=== PATIENT | male | born 1935 | race Caucasian/White ===

== ENCOUNTER 2016-10-17 12:28 | Observation (INO) | payer MEDICARE ==
[~2016-10-17] VITALS: Ht 185.4 cm; Wt 103.0 kg
[2016-10-17] VITALS (10 sets, daily range): BP systolic 124–163; BP diastolic 48–77; PULSE 45–82; RESP 16–22; O2SAT 92–97
--- NOTE | 2016-10-17 12:45 | ED.REPORT ---
HPI-Syncope Date of Service Oct 17, 2016 ED Provider: Miguel Good MD The pt is a 81 y/o male w/ a hx of HTN and syncopal episodes, presenting to the ED via EMS due to a syncopal episode. The pt stood up, began to feel dizzy, and have blurred vision, sat back down, and lost consciousness. He didnt feel SOB or chest pain before the incident. The pt has had this happen 3x in the last month. 30 seconds of bystander CPR was performed and an AED was applied but no shock was advised which caused the pt mild L sided chest pain. Denies peripheral edema or weakness. Nursing Notes Stated Complaint: SYNCOPAL EPISODE Chief Complaint: Syncopal episode Nursing Notes Reviewed: Yes ([employer], [employer] not reconciled) Allergies: Coded Allergies: No Known Allergies (Unverified , 10/17/16) General Time Seen by Provider: 13:30 Chief Complaint Lost consciousness Hx Obtained From: Patient, EMS Arrived By: Ambulance Onset Occurred: Just prior to arrival Symptom Duration: Since onset Recent Healthcare: No recent hospitalization, Recent doctor visit Similar Sx Previous: Yes Past Medical History Past Medical History HTN Syncopal episodes Bladder cancer Past Surgical History None reported Social History Other Social History: Good social support Ambulatory Status Independent Review of Systems Mild L sided chest pain due to CPR Eyes: Reports: Blurred bilateral Respiratory: Denies: Shortness of breath Cardiovascular: Denies: Edema Neurologic: Reports: Dizziness, Denies: Weakness Complete sys rev & neg: except as marked. Physical Exam Initial Vital Signs Vital Signs (First) Date Time Temp Pulse Resp B/P Pulse Ox O2 Delivery O2 Flow Rate FiO2 10/17/16 12:34 36.6 45 16 136/48 95 Room Air Initial VS: Reviewed, Vital signs abnormal (bradycardic) Head / Eyes: Atraumatic, Normocephalic, PERRL ENT: Mucous membranes moist, Conjunctiva normal, No scleral icterus Neck: Supple, Non-tender, Full range of motion Abdomen / GI: Soft, Non-tender Upper Extremities: Vascular intact, Neuro intact, No swelling, No tenderness Skin: Warm, Dry, No cyanosis Psychiatric: Mood/affect normal, Behavior normal, Normal thought content General/Constitutional: Awake, Alert, No acute distress Respiratory / Chest: Atraumatic, Breath sounds NL, Breath sounds = bilat Cardiovascular: Heart rate NL, Regular rhythm, Heart sounds NL Lower Extremity / Pelvis / MS: Atraumatic, Inspection NL, Full range of motion Neurologic: Oriented X3, Speech NL Interpretation & Diagnostics Lab Results Interpretation Result Diagram: 10/17/16 1248 10/17/16 1248 Test 10/17/16 12:32 10/17/16 12:48 Hold De Luna Top Tube Received (Received) White Blood Count 6.7th/mm3 (3.8-10.1) Red Blood Count 4.76mil/mm3 (4.40-5.80) Hemoglobin 14.5g/dL (13.8-17.2) Hematocrit 42.9% (41.0-50.0) Mean Corpuscular Volume 90.1fL (81-100) Mean Corpuscular Hemoglobin 30.5pg (27.0-35.0) Mean Corpuscular Hemoglobin Concent 33.8% (32.0-37.0) Red Cell Distribution Width 13.3% (12.3-15.4) Platelet Count 158bil/L (150-400) Neutrophils (%) (Auto) 79.0% (40-74) Lymphocytes (%) (Auto) 10.7% (14-46) Monocytes (%) (Auto) 8.2% (4-12) Eosinophils (%) (Auto) 1.5% (0-5) Basophils (%) (Auto) 0.3% (0-3) Sodium Level 139mEq/L (134-144) Potassium Level 5.4mEq/L (3.5-5.2) Chloride Level 100mEq/L (97-108) Carbon Dioxide Level 26mmol/L (18-29) Blood Urea Nitrogen 19mg/dL (8-27) Creatinine 0.94mg/dL (0.76-1.27) Estimat Glomerular Filtration Rate 82mL/min (>59) Glucose Level 130mg/dL (60-99) Calcium Level 10.8mg/dL (8.5-10.1) Magnesium Level 2.1mg/dL (1.6-2.6) Total Bilirubin 0.8mg/dL (0.0-1.2) Aspartate Amino Transf (AST/SGOT) 28U/L (0-50) Alanine Aminotransferase (ALT/SGPT) 23U/L (0-44) Alkaline Phosphatase 50U/L (25-160) Troponin T < 0.010ug/L (0.0-0.011) Total Protein 6.8g/dL (6.4-8.4) Albumin 4.3g/dL (3.4-5.0) Lab Results Interpretation: CBC normal CMP marginal hyperkalemia Troponin #1 negative ECG Interpretation ECG Interpretation: Rate 42 Sinus bradycardia Prolonged LA interval Time: 12:36 Interpreted by: ED physician X-Ray Chest Interpretation Chest Xray Interpretation: IMPRESSION: No radiographic evidence of acute cardiopulmonary pathology. Dictated by: Jose Maria Giron M.D. on 10/17/2016 at 13:48 Approved by: Jose Maria Giron M.D. on 10/17/2016 at 13:49 View: Portable, 1 view Interpretation / Wet Read by: Interpret - Radiologist Re-Eval/Medical Decision Med Decision/Clinical Course This is a pleasant 81-year-old male who had witnessed syncope at [employer] today. The patient reports she has had a couple brief lightheadedness episodes in recent weeks, was feeling fine when he went to [employer]. 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 Apparently he was unconscious for about 5 minutes, to the point of bystanders initiated CPR. The patient then woke up. First responders applied an AED with No shockable rhythm but patient was waking up as ALS arrived-the patient was found to be profoundly bradycardic and received 0.5 mg of atropine for heart rate in 40s. He recovered uneventfully complaints of little bit of chest soreness that he reports is quite miserable possibly from the CPR. The patient denies any new medicines, he is on lisinopril for blood pressure-but is not on any rate control agents. He denies previous history of coronary disease or syncope. He has no additional complaints. His heart rates come up into the 50s here, he is normotensive. And he clinically appears well. EKG is notable for sinus bradycardia with a marked first-degree heart block, no prior EKGs available for comparison. He thought he had an old EKG 2 years ago at [facility], but a call there was unable to identify one in recent years. Blood work is normal. Chest x-ray reveals no overt trauma. Rales the patient presents with syncope and high risk bradycardia who is not on any rate control agents, the plan is observation for telemetry monitoring and cardiology consultation. Case is discussed with Dr. Ontiveros and Dr. Manjarrez. Source of Hx: Old records, EMS Consultation #1: Referral / Consult Name: Gabriela Ontiveros MD Consulted With: Cardiology Call Returned at: 14:16 Parts Back Counter Man: Will see patient Note: Discussed pt's case. Consultation #2: Referral / Consult Name: Aditi Manjarrez MD Consulted With: Hospitalist Call Returned at: 16:03 Parts Back Counter Man: Will see patient, Agrees with eval, Agrees with plan, Accepts admit Differential Diagnosis: Positive: Dysrhythmia (bradycardia), Negative: Abdominal aortic aneurysm, Electrolyte disorder, Head trauma, Intracranial bleed, Palpitations, Pneumothorax, Prolonged QT syndrome, Pulmonary embolus, Subarachnoid hemorrhage Counseled Regarding: Diagnosis, Lab results, Need for admission Discharge & Departure Impression: Primary Impression: Syncope Syncope type: unspecified Qualified Code: R55 - Syncope and collapse Additional Impressions: Bradycardia First degree heart block Disposition: ADMITTED TO HOSPITAL Discharge Condition All VS Reviewed: Yes Condition: Stable Referrals: Cedric Wallsibzehra Attestation Portions of this note were transcribed by Joe Price. I, Dr. Good personally performed the history, physical exam and medical decision-making; I reviewed and confirmed the accuracy of the information in the transcribed note. copies to: Cedric Walls Matthew F MD Oct 17, 2016 12:44 Joe Price Oct 17, 2016 13:38
[2016-10-17 13:10] LABS: BASOPHILS % (AUTO) 0.3 % (0-3); EOSINOPHILS % (AUTO) 1.5 % (0-5); MONOCYTES % (AUTO) 8.2 % (4-12); Mean Corpuscular Hemoglobin 30.5 pg (27.0-35.0); Mean Corpuscular Volume 90.1 fL (81-100); Platelet Count 158 bil/L (150-400)
--- NOTE | 2016-10-17 13:50 | DRSVH ---
PROCEDURE: X-RAY CHEST ONE VIEW, PORTABLE ([id number]) INDICATIONS: sncope TECHNIQUE: One view of the chest was acquired. COMPARISON: None. FINDINGS: Surgical changes and devices: None. Lungs and pleura: No pleural effusions or pneumothorax. Lungs are clear. Mediastinum: Mediastinal contours appear normal. Heart size is normal. Bones and chest wall: No suspicious bony lesions. Overlying soft tissues appear unremarkable. Tiny metallic fragments project over the left shoulder. IMPRESSION: No radiographic evidence of acute cardiopulmonary pathology. Dictated by: Jose Maria Giron M.D. on 10/17/2016 at 13:48 Approved by: Jose Maria Giron M.D. on 10/17/2016 at 13:49
[2016-10-17 13:58] LABS: TROPONIN T < 0.010 ug/L (0.0-0.011)
[2016-10-17 14:06] LABS: Magnesium 2.1 mg/dL (1.6-2.6)
[2016-10-17] MEDS ORDERED: Alum-Mag Hydrox-Simeth 30 mL Suspension PO PRN (16:20)
[2016-10-17] MEDS ORDERED: Ondansetron 2 mg/mL 2 mL Inj IVPUSH PRN (16:20)
[2016-10-17 17:24] LABS: APPEARANCE,URINE HAZY (CLEAR,HAZY); COLOR,URINE YELLOW (YELLOW); OCCULT BLOOD,URINE NEGATIVE (NEGATIVE)
[2016-10-17] MEDS ORDERED: L.AC1CAP6 PO (17:42)
[2016-10-17] MEDS ORDERED: MULT1CAP33 PO (17:42)
[2016-10-17] MEDS ORDERED: LISI10TA PO (17:42)
[2016-10-17] MEDS ORDERED: OMEG500C PO (17:42)
[2016-10-17] MEDS ORDERED: CHOL200047 PO (17:42)
[2016-10-17] MEDS ORDERED: KTC2C15 TP (17:42)
[2016-10-17] MEDS ORDERED: TAMS0.4C98 PO (17:42)
--- NOTE | 2016-10-17 18:48 | NUR ---
Admit Pt admitted to [facility] room 3005 via ED, report received from Talia SALCEDO. Pt arrived via stretcher, able to transfer self, A/O x 4, denies CP or discomfort, denies dizziness. Admit and Med req completed, assessed and plan on white board.
--- NOTE | 2016-10-17 19:32 | CONS ---
[address] [address] CONSULTATION REPORT PATIENT: SATHYA SCHAFFER : 1935 MR#: [id number] ADMIT: 10/17/2016 JOB ID: [id number] DATE OF SERVICE: 10/17/2016 CHIEF COMPLAINT: The patient came in after a syncopal episode. HISTORY OF PRESENT ILLNESS: The patient is an 81-year-old man who has been treated for hypertension for maybe the past couple of years. Over the past several weeks, he has been feeling a little off base, a little off balance but has not had any presyncope or syncope. Today, he was in [employer]. Most of the time he had been sitting, but he ruchi to stand up, felt like he was going to pass out and sat down. He ultimately lost consciousness. He did not have any chest pain, shortness of breath. He might have felt a little bit of sweatiness before the event and certainly afterward. Because a pulse could not be palpated, bystander CPR was performed and an AD was applied. No shock was advised. Heart rates were in the 40s and his EKG at the time admission shows a heart rate of 42. He denies any problems with chest pain, chest pressure. He has not had any problems with shortness of breath, although he feels like he is slowing down. He denies any orthopnea, PND, lower extremity edema. Does not notice palpitations. PAST MEDICAL HISTORY/PROBLEM LIST: Hypertension. OUTPATIENT MEDICATIONS INCLUDE: 1. Lisinopril 10 mg daily. 2. Tamsulosin. 3. Ketoconazole cream. ALLERGIES: No known drug allergies. SOCIAL HISTORY: No significant alcohol. No tobacco. FAMILY HISTORY: No early coronary disease. REVIEW OF SYSTEMS: Overall health: No fevers, night sweats, or weight loss. GI: No problems with ulcers or blood in the stool. no dysuria, hematuria. Pulmonary: No increased shortness of breath. Cardiac: As per HPI. Denies orthopnea, PND, lower extremity edema. Derm: No rashes or skin breakdown. Neuro: Feeling an unsteady gait. Somewhat off. No chronic headaches. Heme: No easy bruising or bleeding. Psych: No acute issues. Ophtho: No vision changes. ENT: No hearing changes, no difficulty swallowing. All other review of systems on a 12 point review of system are negative. PHYSICAL EXAMINATION: Blood pressure 163/77, heart rate 82, sats are 95% on room air. General: In no acute distress. Speaking in full sentences without apparent shortness of breath. Head and neck exam: Normocephalic, atraumatic. Neck: No obvious JV distention. Heart exam: Bradycardic but regular without obvious murmurs, gallops, rubs appreciated. Lungs sound clear. Back: No CVA tenderness to palpation. Abdomen: Soft, nondistended, nontender. Extremities: Warm, no appreciable edema, 2+ distal pulses. Skin without breakdown appreciated. Neuro: Alert and oriented. Gait not tested. Psych: Appropriate mood and affect. Ophtho: Vision grossly intact. ENT: Hearing intact. Mucous membranes moist. EKG shows sinus bradycardia, rate of 42, first-degree AV block but normal QRS durations. LABORATORIES: Show white count 6.7, H and H 14.5, 42.9, platelets 158,000. Chemistry shows sodium 139, potassium 4.1, chloride and bicarb 100 and 26. BUN and creatinine 19 and 0.94. Troponins negative. IMAGING: Has chest x-ray that shows no acute cardiopulmonary issues. IMPRESSION: The patient had a syncopal event during which he passed out and apparently a pulse was not appreciated, so CPR was performed. He states he has been a little bit off over the last several weeks, feeling unsteady on his feet. Similar, more minor episodes may been occurring. He has never passed out. Heart rate is low. There is no evidence of heart block, just a first-degree AV block. PLAN: 1. Continue him on telemetry. He is going to get his orthostatics checked today. 2. Echocardiogram and will continue to follow with you.
--- NOTE | 2016-10-17 19:53 | PCM.HPMED ---
Subjective Date of Service Oct 17, 2016 Primary Provider: Admitting Physician: Stephen Manjarrez MD Primary Care Physician: Asiya Montero MD Attending Physician: Stephen Manjarrez MD Chief Complaint: Patient is an 81-year-old male with a medical history significant for hypertension and frequent urination presents to the ED with syncope. History of Present Illness: Per patient, he states while at [employer] around 11 AM this morning, patient stood up after 2-3 minutes, patient sent down and lost consciousness for about 5 minutes. Patient denies any loss of bowel control, unsure whether he urinary incontinency however. Patient awoke diaphoretic and nauseous, and vomited. Additionally patient reports lightheadedness and dizziness, no chest pain, palpitation, or shortness of breath however. He denies any muscle aches. He never had this before. Patient states that while he was unconscious, one of the bystander who was a physician, did not detect a pulse and initiated CPR. A portable defibrillator with patches were placed on, however not recommend shock. Prior to this event, patient had several episodes of lightheadedness and dizziness transitioning from sitting to standing position for the past 2-3 weeks. He attributed to inadequate oral intake and did not suspect medical attention. Patient denies any new medication. In the ED, patient was sinus bradycardic with a first-degree heart block heart rate 45, temperature 36.6 normal, but pressure 130/48, respiratory rate 17 pulse oximetry 95% on room air. Sex are unremarkable as was CBC. CMP remarkable for potassium of 5.4 and glucose of 130, otherwise troponin were unremarkable. TSH is 1.01. Pt admitted for observation and workup of syncope. Review of Systems: A comprehensive review of systems was conducted with the patient and found to be negative except as above in the History of Present Illness. Allergies Coded Allergies: No Known Allergies (Unverified , 10/17/16) Home Medications Lisinopril 10 mg daily Multivitamins Probiotics Tamsulosin 0.4 mg twice a day PMH Hypertension History of bladder cancer in the 90s Diverticular disease Surgical History Bladder surgery Partial colectomy secondary to diverticular disease 2007 Family History Father CVA Mother cancer 99 years old Sister with Alzheimer disease Sister #2 disease with pancreatic cancer Social History Hx Alcohol Use: No Hx Substance Use: No Smoking Status: Former Smoker Exam Vital Signs Vital Sign - Last Date Time Temp Pulse Resp B/P Pulse Ox O2 Delivery O2 Flow Rate FiO2 10/17/16 18:46 82 163/77 95 Room Air 10/17/16 17:20 36.9 22 Exam General: No acute distress, appropriately interactive HEENT: Normocephalic, atraumatic. PERRLA, EOMI, Anicteric sclerae, moist conjunctivae. Neck: No JVD, No bruits. No lymphadenopathy or thyromegaly. Cardiovascular: Bradycardic regular in rate, 2+ systolic heart murmur Pulmonary: b/l air sound with no crackles, wheezes, or rhonchi. no use of accessory muscles. Abdomen: +Bowel sound, Soft, nontender, nondistended. Extremities: No clubbing or cyanosis, no lymphedema, no b/l lower leg edema Skin: Normal temperature, turgor, and texture; no rash. No visualized skin ulcer. Neurological: CN II-VII grossly intact, moving equally on all 4 extremities Psychiatric: Normal mood and affect. AOx3 Lab and Diagnostics Result Diagram: 10/17/16 1248 10/17/16 1248 X-Rays, CTs and MRIs PROCEDURE: X-RAY CHEST ONE VIEW, PORTABLE INDICATIONS: syncope IMPRESSION: No radiographic evidence of acute cardiopulmonary pathology. Dictated by: Jose Maria Giron M.D. on 10/17/2016 at 13:48 Assessment & Plan Patient is an 81-year-old male with a medical history significant for hypertension and bladder cancer came in with 1 syncopal episode, admitted for further evaluation. Syncope -EKG sinus bradycardia, with first-degree heart block, positive orthostatics -Most likely cardiac arrhythmia, possible in combination with tamsulosin and dehydration, small suspicious for autonomic dysfunction -good PO fluids, cont to encourage intake -echocardiogram in the AM -Negative troponin 2, trending Symptomatic Bradycardia -first degree heart block -Consult environmental field team member Dr. Billingsley -Telemetry monitoring Hyperkalemia -Kayexalate one-time dose given -BMP in a.m. Frequent urination -holding tamsulosin as above Hypertension -Restart home medication, lisinopril 10 mg daily -Enalaprilat 1.25mg over 5min q6h if SBP consistently >180mmHg Hyperglycemia -A1c pending -daily glucose monitoring CODE STATUS full code DVT prophylaxis heparin subcutaneous Patient Status: Patient is admitted under observation status with expected length of stay LESS than 2 midnights due to severity of presenting symptoms, risk of adverse event, and complexity of treatment plan. GI Prophylaxis: Not indicated VTE Prophylaxis: Sub-Q Heparin (Unfractionated) Resuscitation Status: CPR: Attempt Resuscitation Jenaro An DO Oct 17, 2016 19:53
[2016-10-17] MEDS: Heparin 5,000 Unit/mL Inj SUBQ SCH (21:30)
[2016-10-18 00:23] VITALS: BP 127/56; PULSE 50; RESP 18; O2SAT 93
[2016-10-18 05:08] VITALS: BP_SYST 137; BP_SYST 142; BP_SYST 174; BP_DIAS 70; PULSE 49; RESP 18; O2SAT 94
--- NOTE | 2016-10-18 06:07 | NUR ---
NOC Activity Pt is alert and oriented. Denies chest pain, sob, n/v or abd discomfort. Telemetry noted no abnormal rhythm. Intentional hourly rounding done and pt has slept most of the night.
[2016-10-18] MEDS: Heparin 5,000 Unit/mL Inj SUBQ SCH (08:29)
[2016-10-18 10:10] VITALS: PULSE 55
--- NOTE | 2016-10-18 10:27 | NUR ---
Social Work-initial assessment/readiness for discharge/ multidisciplinary rounds: Data:See initial assessment. Pt is a 81 y/o male who was admitted on 10/17/16 for syncope per H&P. Pt's insurance is [employer] and PCP is Asiya Montero MD. EMR reviewed. SW met with pt at bedside, SW role explained. Pt is alert and oriented x3. Pt resides at home alone in [place] where he remains independent with ADls. Pt drive and does not use any DME. Pt has no HH or SNF history. Pt has no assistant terminal manager care insurance or VA benefits. SW discussed DPOA/advanced directive, Pt confirms this has been completed, SW encouraged a copy to be brought in. No concerns noted for pt's capacity for self care per RN or MD. Pt has been up independent in his room. SW provided pt with discharge planning checklist and encouraged pt to call with any questions, phone number provided. pt confirms his SO Angelina Stephenson will provide transport home. No discharge needs identified. SW will continue to follow if needs arise. Assessment:Pt who is independent at baseline. Plan:Pt to discharge home when medically stable via POV. No discharge needs identified. SW will continue to follow if needs arise. ELSA Proctor Addendum: 10/18/16 at 1036 by CARLOS PERAZA Amended: Links added.
[2016-10-18 10:54] VITALS: BP 150/64; PULSE 48; RESP 18; O2SAT 96
--- NOTE | 2016-10-18 11:24 | DRSVH ---
[facility] [address] [place] [address] Echocardiogram Report Name: SATHYA SCHAFFER Study Date: 10/18/2016 Height: 73 in Hospital Exam Location: [facility] Weight: 22 7 lb Gender: Male BSA: 2.3 m2 : 1935 Age: 81 yrs BP: 174/70 mmHg Reason For Study: 1ST DEGREE AV BLOCK, SYNCOPE Ordering Physician: SHAYY BOB Performed By: Keren Chapman [facility] Interpretation Summary 1) Mild concentric left ventricular hypertrophy with normal size, wall motion, and systolic functoin (EF 55-60%). 2) Mildly enlarged right ventricle with normal function. 3) No significant valvular abnormalities. 4) Normal pulmonary artery pressures. 5) No prior Echo available for comparison. Procedure: A two-dimensional transthoracic echocardiogram with color flow and Doppler was performed. The study quality was technically adequate. There is no prior echocardiogram noted for this patient. The patient was in sinus bradycardia with heart rates between 46 and 51 bpm during the exam. Left Ventricle: The left ventricle is normal in size. There is mild concentric left ventricular hypertrophy. The left ventricular ejection fraction is normal. The ejection fraction is estimated to be 55-60%. There are no focal wall motion abnormalities. Assessment of diastolic parameters indicates a relaxation abnormality of the left ventricle, consistent with normal filling pressures. Right Ventricle: The right ventricle is mildly dilated. The right ventricular systolic function is normal. Atria: The left atrium is moderately dilated. The right atrium is normal in size. There is no Doppler evidence for an interatrial shunt. Mitral Valve: The mitral valve leaflets appear normal. There is no evidence of stenosis, fluttering, or prolapse. There is trace mitral regurgitation. Aortic Valve: The aortic valve is trileaflet. The aortic valve is slightly calcified. The aortic valve opens well. There is no aortic valve stenosis. No aortic regurgitation is present. Tricuspid Valve: The tricuspid valve is normal. There is mild tricuspid regurgitation. The right ventricular systolic pressure is estimated at least 35 mmHg assuming a right atrial pressure of 3 mm Hg. Pulmonic Valve: The pulmonic valve leaflets are thin and pliable; valve motion is normal. There is trace pulmonic regurgitation. Great Vessels: The aortic root is normal size. The ascending aorta is normal in size. The aortic arch is normal in size. The pulmonary artery is not well visualized, but is probably normal size. The IVC is of normal diameter and collapses greater than 50% with a sniff. This suggests a low right atrial pressure of 3 mm Hg. Pericardium/ Pleura There is no pericardial effusion. There is no pleural effusion. MMode/2D Measurements & Calculations LVIDd: 5.0 cm RA long axis LVOT diam: 2.2 cm LVIDs: 2.9 cm LA A2 area: 28.0 cm AoV Opening FS: 41.3 % LA A4 area: 19.9 cm RA area EPSS: 0.28 cm LA length (vol) Ao root diam IVSd: 1.2 cm : 20.3 cm LVPWd: 1.3 cm LA vol: 77.6 ml RA vol asc Aorta Diam LA vol index : 60.5 ml RA Ao Arch Diam (Prox : 26.7 mm2 Trans): 3.0 cm IVC diam: 1.8 cm LV donnelly. diameter/BSA LV sys. diameter/BSA RVD1 (basal) (cm/m^2): 2.2 (cm/m^2): 1.3 Doppler Measurements & Calculations Ao V2 max MV E max severino MV E/A: 1.6 TR max severino : 194.8 cm/sec : 91.8 cm/sec Med Peak E' Severino : 283.9 cm/sec Ao max PG MV A max severino TR max PG : 15.2 mmHg : 58.2 cm/sec E/E' med: 11.8 : 32.3 mmHg Ao mean PG MV P1/2t: 81.3 msec Lat Peak E' Severino PA V2 max : 109.4 cm/sec LVOT Max Severino E/E' lat: 7.8 PA mean PG : 132.2 cm/sec E/e' average: 9.8 PA Accel Time ROSE(I,D): 3.0 cm : 0.11 sec sev ratio MV dec time MV P1/2t max severino Ao V2 mean LV V1 max PG : 0.27 sec : 131.9 cm/sec MVA(P1/2t): 2.7 cm2 Ao V2 VTI: 38.8 cm LV V1 VTI ROSE(V,D): 2.7 cm2 : 29.3 cm PA V2 mean ROSE indexed to BSA : 69.2 cm/sec (cm^2/m^2): 1.3 Reading Physician:11:23 AM
--- NOTE | 2016-10-18 12:22 | NUR ---
Foiling Machine Operator: FLOR and Medicare Part D delivered and explained to patient and spouse. Signed original placed in chart. Copy left at bedside. Caterina Posada RN
--- NOTE | 2016-10-18 15:07 | PCM.DIMED ---
Discharge Instructions Date of Service Oct 18, 2016 Dates of Hospitalization Oct 17, 2016 at 16:27 Discharge Diagnosis Discharge Diagnosis acute dx syncopal episode s/p CPR, likely due to dehydration Hyperkalemia first degree AV block chronic dx Hypertension History of bladder cancer in the 90s Patient Instructions Patient Instructions You were hospitalized with episode of syncope and you were resuscitated due to possible cardiac arrest. You were monitored closely in the hospital. Studies haven't shown significant irregular heart rhythms or any structural abnormalities on your heart. Please follow up with in 1-2weeks for further evaluation. Please follow up with your primary doctor in 1week. Follow-up Provider: Gabriela Ontiveros MD Follow-up with PCP in: 1 week Provider: Asiya Montero MD Follow-up in: 2 weeks Stephen Manjarrez MD Oct 18, 2016 09:15
--- NOTE | 2016-10-18 15:22 | PCM.DC.MED ---
Discharge Summary Date of Service Oct 18, 2016 Dates of Hospitalization Date of Hospital Admission Oct 17, 2016 at 16:27 Date of Discharge: Oct 18, 2016 Providers: Admitting Physician: Stephen Bob MD Primary Care Physician: Asiya Montero MD Attending Physician: Stephen Bob MD Diagnosis at Time of Discharge Diagnosis at Time of Discharge acute dx syncopal episode s/p CPR, likely due to dehydration Hyperkalemia first degree AV block chronic dx Hypertension History of bladder cancer in the 90s Procedures XRay, CTs & MRIs PROCEDURE: X-RAY CHEST ONE VIEW, PORTABLE INDICATIONS: syncope IMPRESSION: No radiographic evidence of acute cardiopulmonary pathology. Dictated by: Jose Maria Giron M.D. on 10/17/2016 at 13:48 ECG 12 Lead 1st degree AVB Cardiac Echo Impression Echocardiogram Report Name: SATHYA SCHAFFER Study Date: 10/18/2016 Height: 73 in Hospital Exam Location: [facility] Weight: 22 7 lb Gender: Male BSA: 2.3 m2 : 1935 Age: 81 yrs BP: 174/70 mmHg Reason For Study: 1ST DEGREE AV BLOCK, SYNCOPE Ordering Physician: STEPHEN BOB Performed By: Keren Chapman Referring Physician: Javed Huynh Interpretation Summary 1) Mild concentric left ventricular hypertrophy with normal size, wall motion, and systolic functoin (EF 55-60%). 2) Mildly enlarged right ventricle with normal function. 3) No significant valvular abnormalities. 4) Normal pulmonary artery pressures. 5) No prior Echo available for comparison. Brief History HPI obtained on 10/17 Per patient, he states while at [employer] around 11 AM this morning, patient stood up after 2-3 minutes, patient sent down and lost consciousness for about 5 minutes. Patient denies any loss of bowel control, unsure whether he urinary incontinency however. Patient awoke diaphoretic and nauseous, and vomited. Additionally patient reports lightheadedness and dizziness, no chest pain, palpitation, or shortness of breath however. He denies any muscle aches. He never had this before. Patient states that while he was unconscious, one of the bystander who was a physician, did not detect a pulse and initiated CPR. A portable defibrillator with patches were placed on, however not recommend shock. Prior to this event, patient had several episodes of lightheadedness and dizziness transitioning from sitting to standing position for the past 2-3 weeks. He attributed to inadequate oral intake and did not suspect medical attention. Patient denies any new medication. In the ED, patient was sinus bradycardic with a first-degree heart block heart rate 45, temperature 36.6 normal, but pressure 130/48, respiratory rate 17 pulse oximetry 95% on room air. Sex are unremarkable as was CBC. CMP remarkable for potassium of 5.4 and glucose of 130, otherwise troponin were unremarkable. TSH is 1.01. Pt admitted for observation and workup of syncope. Hospital Course Patient is an 81-year-old male with a medical history significant for hypertension and bladder cancer came in with 1 syncopal episode, admitted for further evaluation. Brief hospital course Patient was admitted to the hospital given possible cardiac etiology of syncope. It was unclear patient really had pulseless arrest, it was believed to be more of a orthostatic hypotension resulted in syncope. Since EKG showed first-degree AV block(unknown chronicity), pt was monitored closely on telemetry , no higher degree AV block or pauses were observed, patient was consult by cardiology, eventually underwent regular exercise EKG stress test, was only able to finish 75% of target, however no EKG changes was observed. Serial troponins were also negative. TTE was unremarkable for valvular dz, showed normal LV function. Patient also remained asymptomatic throughout the hospitalization, given subacute onset with clear orthosis from the history, patient was recommended to hydrate enough fluid, recommended to follow-up with in cardiology clinic in 2weeks. Syncope -EKG sinus bradycardia, with first-degree heart block, positive orthostatics -Most likely cardiac arrhythmia, possible in combination with tamsulosin and dehydration, small suspicious for autonomic dysfunction -good PO fluids, cont to encourage intake -echocardiogram in the AM -Negative troponin 2, trending Symptomatic Bradycardia -first degree heart block -Consult software packager Dr. Billingsley -Telemetry monitoring Hyperkalemia -Kayexalate one-time dose given -BMP in a.m. Frequent urination -holding tamsulosin as above Hypertension -Restart home medication, lisinopril 10 mg daily -Enalaprilat 1.25mg over 5min q6h if SBP consistently >180mmHg Hyperglycemia -A1c pending -daily glucose monitoring CODE STATUS full code DVT prophylaxis heparin subcutaneous Patient Status: Patient is admitted under observation status with expected length of stay LESS than 2 midnights due to severity of presenting symptoms, risk of adverse event, and complexity of treatment plan. Exam Vital Signs (Last) Date Time Temp Pulse Resp B/P Pulse Ox O2 Delivery O2 Flow Rate FiO2 10/18/16 10:54 36.5 48 18 150/64 96 Room Air Exam Patient was examined on the day of discharge Test 10/17/16 12:32 10/17/16 12:48 10/17/16 17:00 10/17/16 17:44 Hold [place] Top Tube Received (Received) White Blood Count 6.7th/mm3 (3.8-10.1) Red Blood Count 4.76mil/mm3 (4.40-5.80) Hemoglobin 14.5g/dL (13.8-17.2) Hematocrit 42.9% (41.0-50.0) Mean Corpuscular Volume 90.1fL (81-100) Mean Corpuscular Hemoglobin 30.5pg (27.0-35.0) Mean Corpuscular Hemoglobin Concent 33.8% (32.0-37.0) Red Cell Distribution Width 13.3% (12.3-15.4) Platelet Count 158bil/L (150-400) Neutrophils (%) (Auto) 79.0% (40-74) Lymphocytes (%) (Auto) 10.7% (14-46) Monocytes (%) (Auto) 8.2% (4-12) Eosinophils (%) (Auto) 1.5% (0-5) Basophils (%) (Auto) 0.3% (0-3) Magnesium Level 2.1mg/dL (1.6-2.6) Total Bilirubin 0.8mg/dL (0.0-1.2) Aspartate Amino Transf (AST/SGOT) 28U/L (0-50) Alanine Aminotransferase (ALT/SGPT) 23U/L (0-44) Alkaline Phosphatase 50U/L (25-160) Total Protein 6.8g/dL (6.4-8.4) Albumin 4.3g/dL (3.4-5.0) Urine Color Yellow (YELLOW) Urine Appearance Hazy (CLEAR,HAZY) Urine pH 7.0 (5.0-8.0) Urine Specific [place] 1.020 (1.003-1.035) Urine Protein Tracemg/dL (NEG,TRACE) Urine Glucose (UA) Negativemg/dL (NEGATIVE) Urine Ketones Negativemg/dL (NEGATIVE) Urine Occult Blood Negative (NEGATIVE) Urine Nitrite Negative (NEGATIVE) Urine Bilirubin Negative (NEGATIVE) Urine Urobilinogen 1.0mg/dL (NORMAL) Urine Leukocyte Esterase Negative (NEGATIVE) Urine RBC 0-2/hpf (0-2) Urine WBC 0-5/hpf (0-5) Urine Epithelial Cells None/hpf (NONE-MOD) Urine Crystals Amorphous urates (NONE Urine Bacteria Few/hpf (NONE-FEW) Urine Hyaline Casts None/lpf (NONE) Urine Granular Casts None seen (NONE SEEN) Urine Waxy Casts None seen (NONE SEEN) Urine Red Blood Cell Casts None seen (NONE SEEN) Urine White Blood Cell Casts None seen (NONE SEEN) Urine Mucus None seen (None Seen) Urine Trichomonas None seen (NONE SEEN) Urine Yeast None (NONE SEEN) Urinalysis Comment None Urine Culture Reflexed Not indicated Thyroid Stimulating Hormone (TSH) 1.010uIU/mL (0.450-4.500) Test 10/18/16 00:01 10/18/16 05:30 Troponin T 0.010ug/L (0.0-0.011) Sodium Level 140mEq/L (134-144) Potassium Level 4.3mEq/L (3.5-5.2) Chloride Level 101mEq/L (97-108) Carbon Dioxide Level 24mmol/L (18-29) Blood Urea Nitrogen 19mg/dL (8-27) Creatinine 0.90mg/dL (0.76-1.27) Estimat Glomerular Filtration Rate 86mL/min (>59) Glucose Level 121mg/dL (60-99) Calcium Level 9.8mg/dL (8.5-10.1) Discharge Medications Discharge Medications Lisinopril (Lisinopril) 10 Mg Tablet 10 MG PO DAILY (Reported) Adel-3 Fatty Acids (Fish Oil) 500 Mg Capsule.dr 1,000 MG PO BID (Reported) Tamsulosin (Flomax) 0.4 Mg Capsule 0.4 MG PO BID (Reported) Miscellaneous Medications Cholecalciferol (Vitamin D3) (Vitamin D3) 2,000 Unit Capsule 2,000 UNIT PO ( Reported) Ketoconazole (Ketoconazole) 15 Gm Cream..g. 15 GM TP (Reported) L.acidoph & Paracasei,B.lactis (Probiotic) 10 Billion Cell Capsule 1 EACH PO ( Reported) Multivitamin (Multivitamins) 1 Each Capsule 1 EACH PO (Reported) Followup Plan Disposition: home Patient Instructions You were hospitalized with episode of syncope and you were resuscitated due to possible cardiac arrest. You were monitored closely in the hospital. Studies haven't shown significant irregular heart rhythms or any structural abnormalities on your heart. Please follow up with in 1-2weeks for further evaluation. Please follow up with your primary doctor in 1week. Follow-up Provider: Gabriela Ontiveros MD Follow-up with PCP in: 1 week Provider: Asiya Montero MD Follow-up in: 2 weeks Time spent 65min Stephen Bob MD Oct 18, 2016 15:22
--- NOTE | 2016-10-18 15:43 | NUR ---
Social Work-discharge: Data:EMR Reviewed. Pt is on day 1 of hospitalization for syncope per H&P. Pt is medically stable for discharge. Pt has been up independent in his room. Pt's SO to provide transport home today. No discharge needs identified. All updated and agreeable to plan. Assessment:Pt who is independent at baseline. Plan:Pt to discharge home today via POV. No discharge needs identified. All updated and agreeable to plan. ELSA Proctor
--- NOTE | 2016-10-18 16:00 | NUR ---
Discharge Patient discharge to home via POV, accompanied by his significant other. Discharge notes and instructions given and well understood by patient. He will call Dr. Ontiveros for an out patient cardiology appointment, clinic phone number given. All personal belongings taken home with them.
== END 2016-10-18 15:58 | disposition home or self-care (01) ==
LOC: SED 12:28 → EDBD 12:28 → MPC 16:27 → INTOOBSV 16:27
PROVIDERS: ADMIT Internal Medicine; ATTEND Internal Medicine
DX: R55 Syncope and collapse (principal); I44.0 Atrioventricular block, first degree; E87.5 Hyperkalemia; R00.1 Bradycardia, unspecified; R73.9 Hyperglycemia, unspecified; I10 Essential (primary) hypertension; R35.0 Frequency of micturition; Z85.51 Personal history of malignant neoplasm of bladder; Z87.891 Personal history of nicotine dependence
CPT/HCPCS: 36415; 71010; 80048; 80053; 81000; 82948; 83735; 84443; 84484; 85025; 93005; 93017; 99285; C8929; G0378; J1644